=== PATIENT | female | born 1945 | race Hispanic/Latino ===

== ENCOUNTER 2020-08-01 19:09 | Inpatient (IN) | payer MEDICARE, BC ==
[2020-08-01] MEDS ORDERED: Pantoprazole 40 MG VIAL ONE (19:34)
[2020-08-01 19:35] LABS: #Eosinphils 0.2 10x3/uL (0.0-0.5); #Monocytes 0.9 10x3/uL (0.0-1.1); #Neutrophils 3.8 10x3/uL (1.5-8.4); %Basophils 0.5 % (0.0-2.0); %Eosinophils 3.6 % (0.0-6.0); %Lymphocytes 26.3 % (18.0-47.0); %Monocytes 13.1 % (0.0-10.0); %Neutrophils 56.2 % (40.0-75.0); Hemoglobin 9.3 g/dL (12.0-15.5); Mean Corpuscular HGB CONC 30.9 g/dL (32.0-36.0); Mean Corpuscular Hemoglobin 28.9 pg (27.0-33.0); Mean Corpuscular Volume 93.5 fl (81.6-98.3); Mean Platelet Volume 11.9 fl (7.4-10.4); Platelet Count 172 10x3/uL (150-450); RBC Distribution Width 14.9 % (11.5-14.5); Red Blood Cell (RBC) Count 3.22 10x6/uL (3.90-5.03); White Blood Cell (WBC) Count 6.7 10x3/uL (3.5-10.5)
[2020-08-01 19:48] LABS: ALT (SGPT) 14 U/L (8-55); AST (SGOT) 12 U/L (5-34); Albumin 3.1 g/dL (3.4-4.8); Alkaline Phosphatase 82 U/L (40-110); Anion Gap 14 mmol/L (10-20); BUN (Urea Nitrogen) 48 mg/dL (9.8-20.1); Bilirubin, Total 0.2 mg/dL (0.2-1.2); Calc. Creatinine Clearance 0 mL/min (70-130); Calcium 8.6 mg/dL (7.8-10.44); Carbon Dioxide 20 mmol/L (23-31); Chloride 116 mmol/L (98-107); Globulin 2.7 g/dL (2.4-3.5); Glucose 91 mg/dL (83-110); Potassium 4.4 mmol/L (3.5-5.1); Protein, Total 5.8 g/dL (5.8-8.1); Sodium 146 mmol/L (136-145)
[2020-08-01] MEDS ORDERED: Ondansetron PF 4 MG/2 ML Vial IVP PRN (21:12)
[2020-08-01] MEDS ORDERED: Zolpidem Tartrate 5 MG TAB PO PRN (21:12)
[2020-08-01] MEDS ORDERED: Calcium Carbonate 500 MG ChewTAB PO PRN (21:12)
[2020-08-01] MEDS ORDERED: Guaifenesin DM 100-10/5 ML UDCUP PO PRN (21:12)
[2020-08-01] MEDS ORDERED: Lactated Ringer's 1,000 ML IV SCH (21:15)
[2020-08-01] MEDS ORDERED: hydrALAZINE 20 MG/ML VIAL SLOW IVP PRN (21:16)
[2020-08-01 23:16] VITALS: BMI 30.8
[2020-08-02 05:43] LABS: Anion Gap 14 mmol/L (10-20); BUN (Urea Nitrogen) 52 mg/dL (9.8-20.1); Calc. Creatinine Clearance 27 mL/min (70-130); Carbon Dioxide 17 mmol/L (23-31); Chloride 118 mmol/L (98-107); Glucose 138 mg/dL (83-110); Iron 68 ug/dL (50-170); Iron Binding Capacity, Total 219 mcg/dL (265-497); Potassium 5.3 mmol/L (3.5-5.1); Sodium 144 mmol/L (136-145)
[2020-08-02] MEDS: Levothyroxine Sodium 75 MCG TAB PO SCH (05:44)
[2020-08-02 05:50] LABS: #Eosinphils 0.2 10x3/uL (0.0-0.5); #Monocytes 0.9 10x3/uL (0.0-1.1); #Neutrophils 4.5 10x3/uL (1.5-8.4); %Basophils 0.4 % (0.0-2.0); %Eosinophils 2.8 % (0.0-6.0); %Lymphocytes 23.2 % (18.0-47.0); %Monocytes 11.9 % (0.0-10.0); %Neutrophils 61.2 % (40.0-75.0); Hemoglobin 8.2 g/dL (12.0-15.5); Mean Corpuscular Hemoglobin 28.6 pg (27.0-33.0); Mean Corpuscular Volume 95.1 fl (81.6-98.3); Mean Platelet Volume 12.3 fl (7.4-10.4); Platelet Count 147 10x3/uL (150-450); RBC Distribution Width 15.2 % (11.5-14.5); Red Blood Cell (RBC) Count 2.87 10x6/uL (3.90-5.03); White Blood Cell (WBC) Count 7.4 10x3/uL (3.5-10.5)
[2020-08-02 06:00] LABS: Ferritin 60.49 ng/mL (10-291)
[2020-08-02] MEDS ORDERED: Sodium Chloride 0.45% 500 ML IV SCH (06:30)
[2020-08-02] MEDS: busPIRone HCl 5 MG TAB PO SCH ×2 (08:54→21:10)
[2020-08-02] MEDS: Gabapentin 300 MG CAP PO SCH ×2 (08:54→21:09)
[2020-08-02] MEDS: Folic Acid 1 MG TAB PO SCH (08:55)
[2020-08-02] MEDS: NIFEdipine XL 30 MG TAB PO SCH (08:55)
[2020-08-02] MEDS: Escitalopram Oxalate 20 mg Tablet PO SCH (08:55)
[2020-08-02] MEDS: hydrALAZINE 25 MG TAB PO SCH ×2 (08:55→21:16)
[2020-08-02] MEDS: Carvedilol 12.5 MG TAB PO SCH ×2 (08:55→17:17)
[2020-08-02] MEDS: Cholecalciferol 1,000 UNITS (25 MCG) TAB PO SCH (08:55)
[2020-08-02] MEDS: Rosuvastatin 10 MG TAB PO SCH (08:55)
[2020-08-02] MEDS: Pantoprazole 40 MG VIAL IVP SCH ×2 (08:57→21:11)
[2020-08-02] MEDS: Acetaminophen 325 MG TAB PO PRN (10:00)
[2020-08-02 16:38] LABS: SARS-CoV-2 PCR by NAA Not Detected (NotDetected)
[2020-08-02] MEDS: Dextrose 5 % And 0.9 % NaCl 1,000 ML IV SCH (21:30)
[2020-08-03] MEDS: Acetaminophen 325 MG TAB PO PRN (01:00)
[2020-08-03] MEDS: Levothyroxine Sodium 75 MCG TAB PO SCH (05:49)
[2020-08-03 06:36] LABS: Anion Gap 13 mmol/L (10-20); BUN (Urea Nitrogen) 41 mg/dL (9.8-20.1); Calc. Creatinine Clearance 30 mL/min (70-130); Calcium 8.5 mg/dL (7.8-10.44); Carbon Dioxide 18 mmol/L (23-31); Chloride 118 mmol/L (98-107); Glucose 111 mg/dL (83-110); Sodium 144 mmol/L (136-145)
[2020-08-03 06:39] LABS: #Eosinphils 0.3 10x3/uL (0.0-0.5); #Monocytes 0.5 10x3/uL (0.0-1.1); #Neutrophils 3.6 10x3/uL (1.5-8.4); %Basophils 0.7 % (0.0-2.0); %Eosinophils 5.3 % (0.0-6.0); %Lymphocytes 23.4 % (18.0-47.0); %Monocytes 8.8 % (0.0-10.0); %Neutrophils 61.3 % (40.0-75.0); Hemoglobin 8.6 g/dL (12.0-15.5); Mean Corpuscular HGB CONC 30.9 g/dL (32.0-36.0); Mean Corpuscular Hemoglobin 29.5 pg (27.0-33.0); Mean Corpuscular Volume 95.2 fl (81.6-98.3); Mean Platelet Volume 11.7 fl (7.4-10.4); Platelet Count 133 10x3/uL (150-450); Red Blood Cell (RBC) Count 2.92 10x6/uL (3.90-5.03); White Blood Cell (WBC) Count 5.8 10x3/uL (3.5-10.5)
[2020-08-03] MEDS: busPIRone HCl 5 MG TAB PO SCH ×2 (08:25→21:54)
[2020-08-03] MEDS: Pantoprazole 40 MG VIAL IVP SCH ×2 (08:25→21:54)
[2020-08-03] MEDS: Gabapentin 300 MG CAP PO SCH ×2 (08:26→21:54)
[2020-08-03] MEDS: Cholecalciferol 1,000 UNITS (25 MCG) TAB PO SCH (08:26)
[2020-08-03] MEDS: hydrALAZINE 25 MG TAB PO SCH ×2 (08:26→21:54)
[2020-08-03] MEDS: Escitalopram Oxalate 20 mg Tablet PO SCH (08:26)
[2020-08-03] MEDS: Rosuvastatin 10 MG TAB PO SCH (08:26)
[2020-08-03] MEDS: NIFEdipine XL 30 MG TAB PO SCH (08:27)
[2020-08-03] MEDS: Folic Acid 1 MG TAB PO SCH (08:27)
[2020-08-03] MEDS: Carvedilol 12.5 MG TAB PO SCH ×2 (08:27→18:58)
[2020-08-03] MEDS: Dextrose 5 % And 0.9 % NaCl 1,000 ML IV SCH (13:39)
[2020-08-03 15:02] LABS: Hemoglobin 7.9 g/dL (12.0-15.5)
[2020-08-03] MEDS ORDERED: GoLYTELY 4,000 ml Bottle PO SCH (18:00)
[2020-08-03 22:54] LABS: Hemoglobin 6.9 g/dL (12.0-15.5)
[2020-08-04] MEDS: Levothyroxine Sodium 75 MCG TAB PO SCH (06:13)
[2020-08-04 06:56] LABS: #Eosinphils 0.2 10x3/uL (0.0-0.5); #Monocytes 0.7 10x3/uL (0.0-1.1); #Neutrophils 4.6 10x3/uL (1.5-8.4); %Basophils 0.4 % (0.0-2.0); %Eosinophils 2.3 % (0.0-6.0); %Lymphocytes 19.4 % (18.0-47.0); %Monocytes 10.6 % (0.0-10.0); %Neutrophils 66.7 % (40.0-75.0); Hemoglobin 8.1 g/dL (12.0-15.5); Mean Corpuscular HGB CONC 32.1 g/dL (32.0-36.0); Mean Corpuscular Hemoglobin 30.2 pg (27.0-33.0); Mean Platelet Volume 12.2 fl (7.4-10.4); Platelet Count 102 10x3/uL (150-450); RBC Distribution Width 15.2 % (11.5-14.5); Red Blood Cell (RBC) Count 2.68 10x6/uL (3.90-5.03)
[2020-08-04 07:12] LABS: Anion Gap 10 mmol/L (10-20); BUN (Urea Nitrogen) 29 mg/dL (9.8-20.1); Calc. Creatinine Clearance 31 mL/min (70-130); Calcium 7.9 mg/dL (7.8-10.44); Carbon Dioxide 18 mmol/L (23-31); Chloride 121 mmol/L (98-107); Glucose 114 mg/dL (83-110); Potassium 5.2 mmol/L (3.5-5.1); Sodium 144 mmol/L (136-145)
[2020-08-04] MEDS ORDERED: PROPOFOL 20 ML ONE ×2 (09:27→10:09)
[2020-08-04] MEDS: hydrALAZINE 25 MG TAB PO SCH (12:16)
[2020-08-04] MEDS: Rosuvastatin 10 MG TAB PO SCH (12:17)
[2020-08-04] MEDS: Gabapentin 300 MG CAP PO SCH ×2 (12:17→22:23)
[2020-08-04] MEDS: Escitalopram Oxalate 20 mg Tablet PO SCH (12:17)
[2020-08-04] MEDS: busPIRone HCl 5 MG TAB PO SCH ×2 (12:17→22:24)
[2020-08-04] MEDS: Carvedilol 12.5 MG TAB PO SCH ×2 (12:17→22:23)
[2020-08-04] MEDS: Folic Acid 1 MG TAB PO SCH (12:18)
[2020-08-04] MEDS: Cholecalciferol 1,000 UNITS (25 MCG) TAB PO SCH (12:18)
[2020-08-04] MEDS: NIFEdipine XL 30 MG TAB PO SCH (12:18)
[2020-08-04] MEDS: Pantoprazole 40 MG VIAL IVP SCH (15:30)
[2020-08-04] MEDS: Dextrose 5 % And 0.9 % NaCl 1,000 ML IV SCH (15:31)
[2020-08-05] MEDS ORDERED: Dextrose 50% Abboject 50 ML SYRINGE IVP PRN (00:15)
[2020-08-05] MEDS ORDERED: Dextrose 5% in Water 1,000 ML IV PRN (00:15)
[2020-08-05] MEDS ORDERED: HumaLOG 300 UNITS/3 ML VIAL SC PRN (00:15)
[2020-08-05] MEDS: hydrALAZINE 25 MG TAB PO SCH ×2 (02:52→08:58)
[2020-08-05 05:40] LABS: #Eosinphils 0.2 10x3/uL (0.0-0.5); #Monocytes 0.6 10x3/uL (0.0-1.1); #Neutrophils 2.8 10x3/uL (1.5-8.4); %Basophils 0.2 % (0.0-2.0); %Eosinophils 4.1 % (0.0-6.0); %Lymphocytes 28.6 % (18.0-47.0); %Monocytes 11.8 % (0.0-10.0); %Neutrophils 54.9 % (40.0-75.0); Hemoglobin 7.3 g/dL (12.0-15.5); Mean Corpuscular HGB CONC 31.1 g/dL (32.0-36.0); Mean Corpuscular Hemoglobin 29.6 pg (27.0-33.0); Mean Corpuscular Volume 95.1 fl (81.6-98.3); Mean Platelet Volume 12.2 fl (7.4-10.4); Platelet Count 127 10x3/uL (150-450); RBC Distribution Width 14.6 % (11.5-14.5); Red Blood Cell (RBC) Count 2.47 10x6/uL (3.90-5.03); White Blood Cell (WBC) Count 5.2 10x3/uL (3.5-10.5)
[2020-08-05] MEDS: Levothyroxine Sodium 75 MCG TAB PO SCH (05:57)
[2020-08-05] MEDS: Rosuvastatin 10 MG TAB PO SCH (08:56)
[2020-08-05] MEDS: Folic Acid 1 MG TAB PO SCH (08:56)
[2020-08-05] MEDS: Escitalopram Oxalate 20 mg Tablet PO SCH (08:56)
[2020-08-05] MEDS: Cholecalciferol 1,000 UNITS (25 MCG) TAB PO SCH (08:56)
[2020-08-05] MEDS: Carvedilol 12.5 MG TAB PO SCH ×2 (08:57→17:17)
[2020-08-05] MEDS: Gabapentin 300 MG CAP PO SCH ×2 (08:57→20:47)
[2020-08-05] MEDS: busPIRone HCl 5 MG TAB PO SCH ×2 (08:57→20:47)
[2020-08-05] MEDS: NIFEdipine XL 30 MG TAB PO SCH (08:58)
[2020-08-05] MEDS ORDERED: Loperamide HCl 2 MG CAP PO SCH (11:30)
[2020-08-06] MEDS: hydrALAZINE 25 MG TAB PO SCH ×2 (00:57→08:41)
[2020-08-06] MEDS: Levothyroxine Sodium 75 MCG TAB PO SCH (05:20)
[2020-08-06] MEDS: Cholecalciferol 1,000 UNITS (25 MCG) TAB PO SCH (08:40)
[2020-08-06] MEDS: Gabapentin 300 MG CAP PO SCH (08:40)
[2020-08-06] MEDS: Folic Acid 1 MG TAB PO SCH (08:40)
[2020-08-06] MEDS: Carvedilol 12.5 MG TAB PO SCH (08:41)
[2020-08-06] MEDS: Rosuvastatin 10 MG TAB PO SCH (08:41)
[2020-08-06] MEDS: NIFEdipine XL 30 MG TAB PO SCH (08:41)
[2020-08-06] MEDS: busPIRone HCl 5 MG TAB PO SCH (08:42)
[2020-08-06] MEDS: Escitalopram Oxalate 20 mg Tablet PO SCH (08:42)
[2020-08-06 11:38] VITALS: TEMP 98.7
[2020-08-06 16:30] VITALS: BP 147/57
== END 2020-08-06 14:00 | disposition home or self-care (01) | DRG 378 ==
LOC: CSHERS 19:09 → CSHTELE 21:12 → OBSVTOIN 08-04 14:37
PROVIDERS: ADMIT Student in an Organized Health Care Education/Training Program; ATTEND Internal Medicine
PROC: 0DJD8ZZ Inspection of Lower Intestinal Tract, Via Natural or Artificial Opening Endoscopic (ICD-10-PCS; principal; 2020-08-04)
DX: K57.33 Diverticulitis of large intestine without perforation or abscess with bleeding (principal); I13.0 Hypertensive heart and chronic kidney disease with heart failure and stage 1 through stage 4 chronic kidney disease, or unspecified chronic kidney disease; I50.32 Chronic diastolic (congestive) heart failure; E87.2 Acidosis; D62 Acute posthemorrhagic anemia; E78.5 Hyperlipidemia, unspecified; E03.9 Hypothyroidism, unspecified; N18.30 Chronic kidney disease, stage 3 unspecified; Z88.6 Allergy status to analgesic agent; Z88.0 Allergy status to penicillin; Z88.2 Allergy status to sulfonamides; Z88.8 Allergy status to other drugs, medicaments and biological substances; Z95.0 Presence of cardiac pacemaker; D63.1 Anemia in chronic kidney disease; F41.9 Anxiety disorder, unspecified; F32.9 Major depressive disorder, single episode, unspecified; E66.9 Obesity, unspecified; Z68.30 Body mass index [BMI] 30.0-30.9, adult; Z66 Do not resuscitate
CPT/HCPCS: 36415; 36416; 36430; 74176; 78278; 80048; 82607; 82728; 82746; 83540; 83550; 85025; 86850; 86900; 86901; 87635; 96365; 96366; A9604; C9113; J1815; J2704; J7042; P9016; U0003; U0005

== ENCOUNTER 2021-02-02 12:47 | Inpatient (IN) | payer OTHER, MEDICARE, BC ==
[2021-02-02 13:29] LABS: #Eosinphils 0.2 10x3/uL (0.0-0.5); #Monocytes 0.7 10x3/uL (0.0-1.1); #Neutrophils 5.3 10x3/uL (1.5-8.4); %Basophils 0.5 % (0.0-2.0); %Eosinophils 2.5 % (0.0-6.0); %Lymphocytes 20.6 % (18.0-47.0); %Monocytes 8.6 % (0.0-10.0); %Neutrophils 67.5 % (40.0-75.0); Mean Corpuscular HGB CONC 30.7 g/dL (32.0-36.0); Mean Corpuscular Hemoglobin 27.9 pg (27.0-33.0); Mean Corpuscular Volume 90.9 fl (81.6-98.3); Mean Platelet Volume 12.1 fl (7.4-10.4); Platelet Count 148 10x3/uL (150-450); RBC Distribution Width 16.1 % (11.5-14.5); Red Blood Cell (RBC) Count 3.94 10x6/uL (3.90-5.03); White Blood Cell (WBC) Count 7.9 10x3/uL (3.5-10.5)
[2021-02-02 13:39] LABS: ALT (SGPT) 13 U/L (8-55); AST (SGOT) 20 U/L (5-34); Albumin 3.6 g/dL (3.4-4.8); Alkaline Phosphatase 89 U/L (40-110); Anion Gap 14 mmol/L (10-20); BUN (Urea Nitrogen) 42 mg/dL (9.8-20.1); Bilirubin, Total 0.9 mg/dL (0.2-1.2); Calc. Creatinine Clearance 0 mL/min (70-130); Calcium 9.2 mg/dL (7.8-10.44); Carbon Dioxide 18 mmol/L (23-31); Chloride 116 mmol/L (98-107); Globulin 3.1 g/dL (2.4-3.5); Glucose 106 mg/dL (83-110); Potassium 4.8 mmol/L (3.5-5.1); Protein, Total 6.7 g/dL (5.8-8.1); Sodium 143 mmol/L (136-145)
[2021-02-02 15:00] LABS: CKMB 3.7 ng/mL (0-6.6)
[2021-02-02] MEDS ORDERED: Furosemide 40 MG/4 ML VIAL ONE (15:46)
[2021-02-02] MEDS ORDERED: Nitroglycerin 2% Ointment 1 INCH/1 GM Packet ONE (15:46)
[2021-02-02] MEDS ORDERED: Carvedilol 12.5 MG TAB PO SCH (16:00)
[2021-02-02] MEDS ORDERED: Losartan 25 MG TAB PO SCH (17:15)
[2021-02-02] MEDS ORDERED: NIFEdipine 10 MG CAP PO SCH (17:15)
[2021-02-02] MEDS ORDERED: niCARdipine 20MG In NaCl 0 MG/0 ML BAG ONE (17:17)
[2021-02-02] MEDS ORDERED: niCARdipine 20MG In NaCl 20 MG/200 ML BAG ONE (17:17)
[2021-02-02 18:06] LABS: Bilirubin Neg (Negative); Blood, Urine 50 (Negative); Clarity Slightly Cloudy (Clear); Glucose, Urine (Dipstick) Normal (Negative); Ketone, Urine Negative (Negative); Leukocyte 500 (Negative); Nitrite Negative (Negative); Protein, Urine (Dipstick) 30 mg/dl (Neg-Trace); Urobilinogen Normal mg/dL (Less than 2)
[2021-02-02 18:22] LABS: RBC/HPF 0-3 HPF (0-3); WBC/HPF 21-50 HPF (0-3)
[2021-02-02 18:23] LABS: Bacteria/HPF 4+ HPF (None Seen); Mucous/LPF 1+ LPF (<2+)
[2021-02-02 18:25] LABS: Troponin I 0.062 ng/mL (< 0.028)
[2021-02-02] MEDS ORDERED: Calcium Carbonate 500 MG ChewTAB PO PRN (19:21)
[2021-02-02] MEDS ORDERED: Dextrose 50% Abboject 50 ML SYRINGE SLOW IVP PRN (19:21)
[2021-02-02] MEDS ORDERED: Guaifenesin DM 100-10/5 ML UDCUP PO PRN (19:21)
[2021-02-02] MEDS ORDERED: HumaLOG 300 UNITS/3 ML VIAL SC PRN (19:21)
[2021-02-02] MEDS ORDERED: Ondansetron PF 4 MG/2 ML Vial IVP PRN (19:21)
[2021-02-02] MEDS ORDERED: Dextrose 5% in Water 1,000 ML IV PRN (19:21)
[2021-02-02] MEDS ORDERED: Acetaminophen 325 MG TAB PO PRN (19:21)
[2021-02-02] MEDS ORDERED: hydrALAZINE 20 MG/ML VIAL SLOW IVP PRN (19:24)
[2021-02-02 20:46] VITALS: BMI 32.1
[2021-02-02] MEDS ORDERED: Lactated Ringer's 1,000 ML IV SCH (21:00)
[2021-02-02 21:20] LABS: Troponin I 0.061 ng/mL (< 0.028)
[2021-02-02] MEDS ORDERED: cefTRIAXone\\ROCEPHIN 1 GM VIAL ONE (22:08)
[2021-02-02] MEDS: cefTRIAXone\\ROCEPHIN 1 GM in Sodium Chloride 0.9% 100 ML IVPB SCH (22:10)
[2021-02-02] MEDS: Gabapentin 300 MG CAP PO SCH (22:10)
[2021-02-02] MEDS: hydrALAZINE 25 MG TAB PO SCH (22:11)
[2021-02-02] MEDS: Rosuvastatin 10 MG TAB PO SCH (22:12)
[2021-02-02] MEDS ORDERED: NIFEdipine XL 30 MG TAB PO SCH (22:15)
[2021-02-02 23:08] LABS: CKMB 3.8 ng/mL (0-6.6)
[2021-02-03 04:30] LABS: #Eosinphils 0.2 10x3/uL (0.0-0.5); #Monocytes 0.8 10x3/uL (0.0-1.1); %Basophils 0.4 % (0.0-2.0); %Eosinophils 2.8 % (0.0-6.0); %Lymphocytes 22.1 % (18.0-47.0); %Monocytes 10.2 % (0.0-10.0); %Neutrophils 64.1 % (40.0-75.0); Hemoglobin 9.2 g/dL (12.0-15.5); Mean Corpuscular HGB CONC 31.4 g/dL (32.0-36.0); Mean Corpuscular Hemoglobin 28.6 pg (27.0-33.0); Mean Platelet Volume 12.5 fl (7.4-10.4); Platelet Count 129 10x3/uL (150-450); RBC Distribution Width 16.2 % (11.5-14.5); Red Blood Cell (RBC) Count 3.22 10x6/uL (3.90-5.03); White Blood Cell (WBC) Count 7.8 10x3/uL (3.5-10.5)
[2021-02-03 04:43] LABS: ALT (SGPT) 11 U/L (8-55); AST (SGOT) 16 U/L (5-34); Alkaline Phosphatase 84 U/L (40-110); Anion Gap 13 mmol/L (10-20); BUN (Urea Nitrogen) 48 mg/dL (9.8-20.1); Bilirubin, Total 0.6 mg/dL (0.2-1.2); CK (CPK) 155 U/L (29-168); Calc. Creatinine Clearance 27 mL/min (70-130); Calcium 8.3 mg/dL (7.8-10.44); Carbon Dioxide 19 mmol/L (23-31); Chloride 118 mmol/L (98-107); Globulin 2.1 g/dL (2.4-3.5); Glucose 163 mg/dL (83-110); Magnesium 2.1 mg/dL (1.6-2.6); Potassium 4.7 mmol/L (3.5-5.1); Protein, Total 5.1 g/dL (5.8-8.1); Sodium 145 mmol/L (136-145)
[2021-02-03 05:05] LABS: CKMB 2.7 ng/mL (0-6.6)
[2021-02-03] MEDS: Levothyroxine Sodium 75 MCG TAB PO SCH (05:52)
[2021-02-03] MEDS: Folic Acid 1 MG TAB PO SCH (09:02)
[2021-02-03] MEDS: Carvedilol 12.5 MG TAB PO SCH ×2 (09:02→17:31)
[2021-02-03] MEDS: Calcitriol 0.25 MCG CAP PO SCH (09:02)
[2021-02-03] MEDS: NIFEdipine XL 30 MG TAB PO SCH (09:02)
[2021-02-03] MEDS: Gabapentin 300 MG CAP PO SCH ×2 (09:02→20:54)
[2021-02-03] MEDS: busPIRone HCl 5 MG TAB PO SCH (09:02)
[2021-02-03] MEDS: Escitalopram Oxalate 20 mg Tablet PO SCH (09:03)
[2021-02-03] MEDS: hydrALAZINE 25 MG TAB PO SCH ×3 (09:03→20:53)
[2021-02-03] MEDS: Lantus 1000 UNITS/10 ML VIAL SC SCH (09:04)
[2021-02-03] MEDS: HYDROcodone/Acetaminophen 5/325 mg Tablet PO PRN (11:55)
[2021-02-03] MEDS ORDERED: Lactated Ringer's 1,000 ML IV SCH (14:45)
[2021-02-03] MEDS: cefTRIAXone\\ROCEPHIN 1 GM in Sodium Chloride 0.9% 100 ML IVPB SCH (20:53)
[2021-02-03] MEDS: Rosuvastatin 10 MG TAB PO SCH (20:54)
[2021-02-04] MEDS: Levothyroxine Sodium 75 MCG TAB PO SCH (06:17)
[2021-02-04] MEDS ORDERED: Cholecalciferol 1,000 UNITS (25 MCG) TAB PO SCH (09:00)
[2021-02-04] MEDS: HYDROcodone/Acetaminophen 5/325 mg Tablet PO PRN (09:29)
[2021-02-04] MEDS: Gabapentin 300 MG CAP PO SCH ×2 (10:43→20:41)
[2021-02-04] MEDS: Escitalopram Oxalate 20 mg Tablet PO SCH (10:44)
[2021-02-04] MEDS: Calcitriol 0.25 MCG CAP PO SCH (10:44)
[2021-02-04] MEDS: busPIRone HCl 5 MG TAB PO SCH (10:44)
[2021-02-04] MEDS: NIFEdipine XL 30 MG TAB PO SCH (10:44)
[2021-02-04] MEDS: hydrALAZINE 25 MG TAB PO SCH ×3 (10:45→20:40)
[2021-02-04] MEDS: Carvedilol 12.5 MG TAB PO SCH ×2 (10:45→18:44)
[2021-02-04] MEDS: Folic Acid 1 MG TAB PO SCH (10:45)
[2021-02-04] MEDS: Furosemide 40 MG TAB PO SCH (10:46)
[2021-02-04] MEDS: Lantus 1000 UNITS/10 ML VIAL SC SCH (10:52)
[2021-02-04] MEDS: Rosuvastatin 10 MG TAB PO SCH (20:40)
[2021-02-04] MEDS: cefTRIAXone\\ROCEPHIN 1 GM in Sodium Chloride 0.9% 100 ML IVPB SCH (20:40)
[2021-02-05] MEDS: Levothyroxine Sodium 75 MCG TAB PO SCH (05:40)
[2021-02-05] MEDS: Calcitriol 0.25 MCG CAP PO SCH (09:35)
[2021-02-05] MEDS: Furosemide 40 MG TAB PO SCH (09:35)
[2021-02-05] MEDS: Gabapentin 300 MG CAP PO SCH (09:35)
[2021-02-05] MEDS: Carvedilol 12.5 MG TAB PO SCH (09:35)
[2021-02-05] MEDS: busPIRone HCl 5 MG TAB PO SCH (09:36)
[2021-02-05] MEDS: NIFEdipine XL 30 MG TAB PO SCH (09:36)
[2021-02-05] MEDS: Folic Acid 1 MG TAB PO SCH (09:36)
[2021-02-05] MEDS: hydrALAZINE 25 MG TAB PO SCH (09:41)
[2021-02-05] MEDS: Lantus 1000 UNITS/10 ML VIAL SC SCH (09:41)
[2021-02-05] MEDS: Escitalopram Oxalate 20 mg Tablet PO SCH (09:41)
[2021-02-05 11:39] VITALS: TEMP 97.7
[2021-02-05 12:25] VITALS: BP 152/65
== END 2021-02-05 13:19 | DRG 605 ==
LOC: CSHERS 12:47 → CSHTELE 12:48
PROVIDERS: ADMIT Student in an Organized Health Care Education/Training Program; ATTEND Internal Medicine
DX: S70.11XA Contusion of right thigh, initial encounter (principal); N39.0 Urinary tract infection, site not specified; E87.2 Acidosis; I50.32 Chronic diastolic (congestive) heart failure; I13.0 Hypertensive heart and chronic kidney disease with heart failure and stage 1 through stage 4 chronic kidney disease, or unspecified chronic kidney disease; K55.1 Chronic vascular disorders of intestine; R79.89 Other specified abnormal findings of blood chemistry; I16.0 Hypertensive urgency; F41.9 Anxiety disorder, unspecified; F32.A Depression, unspecified; E03.9 Hypothyroidism, unspecified; E78.5 Hyperlipidemia, unspecified; K59.00 Constipation, unspecified; W01.0XXA Fall on same level from slipping, tripping and stumbling without subsequent striking against object, initial encounter; E86.0 Dehydration; E11.22 Type 2 diabetes mellitus with diabetic chronic kidney disease; D63.1 Anemia in chronic kidney disease; I70.1 Atherosclerosis of renal artery; Z60.2 Problems related to living alone; N18.30 Chronic kidney disease, stage 3 unspecified; Z90.710 Acquired absence of both cervix and uterus; Z96.659 Presence of unspecified artificial knee joint; D69.6 Thrombocytopenia, unspecified; I08.1 Rheumatic disorders of both mitral and tricuspid valves; E78.00 Pure hypercholesterolemia, unspecified; Y92.008 Other place in unspecified non-institutional (private) residence as the place of occurrence of the external cause; Z91.041 Radiographic dye allergy status; Z88.6 Allergy status to analgesic agent; Z88.2 Allergy status to sulfonamides; Z88.0 Allergy status to penicillin; Z95.0 Presence of cardiac pacemaker
CPT/HCPCS: 36416; 70450; 71045; 72125; 80053; 81003; 81015; 82550; 82553; 83735; 83880; 84443; 84484; 85025; 87077; 87086; 87186; 93005; 93970; J0696; J1815; J1940; J3490; J7120

== ENCOUNTER 2021-09-26 19:21 | Emergency (ER) | payer MEDICARE, BC ==
[2021-09-26 20:21] LABS: #Eosinphils 0.2 10x3/uL (0.0-0.5); #Monocytes 0.6 10x3/uL (0.0-1.1); #Neutrophils 4.3 10x3/uL (1.5-8.4); %Basophils 0.6 % (0.0-2.0); %Eosinophils 3.1 % (0.0-6.0); %Lymphocytes 20.9 % (18.0-47.0); %Monocytes 8.6 % (0.0-10.0); %Neutrophils 66.5 % (40.0-75.0); Hemoglobin 10.8 g/dL (12.0-15.5); Mean Corpuscular HGB CONC 31.1 g/dL (32.0-36.0); Mean Corpuscular Hemoglobin 29.5 pg (27.0-33.0); Mean Corpuscular Volume 94.8 fl (81.6-98.3); Mean Platelet Volume 12.2 fl (7.4-10.4); Platelet Count 129 10x3/uL (150-450); RBC Distribution Width 15.9 % (11.5-14.5); Red Blood Cell (RBC) Count 3.66 10x6/uL (3.90-5.03); White Blood Cell (WBC) Count 6.4 10x3/uL (3.5-10.5)
[2021-09-26 20:35] LABS: ALT (SGPT) 22 U/L (8-55); AST (SGOT) 23 U/L (5-34); Albumin 3.5 g/dL (3.4-4.8); Alkaline Phosphatase 150 U/L (40-110); Anion Gap 15 mmol/L (10-20); BUN (Urea Nitrogen) 56 mg/dL (9.8-20.1); Bilirubin, Total 0.2 mg/dL (0.2-1.2); Calc. Creatinine Clearance 0 mL/min (70-130); Calcium 9.1 mg/dL (7.8-10.44); Carbon Dioxide 17 mmol/L (23-31); Chloride 113 mmol/L (98-107); Estimated GFR 17; Glucose 267 mg/dL (83-110); Potassium 5.2 mmol/L (3.5-5.1); Protein, Total 6.5 g/dL (5.8-8.1); Sodium 140 mmol/L (136-145)
[2021-09-26] MEDS ORDERED: cloNIDine 0.1 MG TAB ONE (21:25)
== END 2021-09-26 22:10 | disposition home or self-care (01) ==
LOC: CSHERS 19:21
DX: S01.01XA Laceration without foreign body of scalp, initial encounter (principal); E11.65 Type 2 diabetes mellitus with hyperglycemia; E11.22 Type 2 diabetes mellitus with diabetic chronic kidney disease; I13.0 Hypertensive heart and chronic kidney disease with heart failure and stage 1 through stage 4 chronic kidney disease, or unspecified chronic kidney disease; N18.9 Chronic kidney disease, unspecified; I50.9 Heart failure, unspecified; Z91.14 Patient's other noncompliance with medication regimen; W01.0XXA Fall on same level from slipping, tripping and stumbling without subsequent striking against object, initial encounter
CPT/HCPCS: 12001; 36415; 70450; 72125; 80053; 85025; 93005; 96374; 96375

== ENCOUNTER 2021-10-22 15:55 | Emergency (ER) | payer MEDICARE, BC ==
[2021-10-22] MEDS ORDERED: Lidocaine 1% (PF) 30 ML VIAL ONE (16:16)
== END 2021-10-22 16:50 | disposition home or self-care (01) ==
LOC: CSHERS 15:55
DX: S01.01XD Laceration without foreign body of scalp, subsequent encounter (principal); E78.5 Hyperlipidemia, unspecified; I11.0 Hypertensive heart disease with heart failure; I50.9 Heart failure, unspecified; E11.9 Type 2 diabetes mellitus without complications
CPT/HCPCS: J2001

== ENCOUNTER 2021-12-11 18:44 | Inpatient (IN) | payer MEDICARE, BC ==
[2021-12-11] MEDS ORDERED: Labetalol HCl 100 MG/20 ML VIAL ONE (19:56)
[2021-12-11 20:00] LABS: #Eosinphils 0.2 10x3/uL (0.0-0.5); #Monocytes 0.6 10x3/uL (0.0-1.1); #Neutrophils 4.7 10x3/uL (1.5-8.4); %Basophils 0.6 % (0.0-2.0); %Eosinophils 2.3 % (0.0-6.0); %Lymphocytes 21.2 % (18.0-47.0); %Monocytes 8.4 % (0.0-10.0); %Neutrophils 67.4 % (40.0-75.0); Mean Corpuscular HGB CONC 32.2 g/dL (32.0-36.0); Mean Corpuscular Hemoglobin 29.6 pg (27.0-33.0); Mean Corpuscular Volume 91.9 fl (81.6-98.3); Mean Platelet Volume 12.1 fl (7.4-10.4); Platelet Count 136 10x3/uL (150-450); RBC Distribution Width 13.8 % (11.5-14.5); Red Blood Cell (RBC) Count 3.72 10x6/uL (3.90-5.03)
[2021-12-11 20:16] LABS: ALT (SGPT) 17 U/L (8-55); AST (SGOT) 20 U/L (5-34); Albumin 3.7 g/dL (3.4-4.8); Alkaline Phosphatase 115 U/L (40-110); Anion Gap 13 mmol/L (10-20); BUN (Urea Nitrogen) 47 mg/dL (9.8-20.1); Bilirubin, Total 0.6 mg/dL (0.2-1.2); Calc. Creatinine Clearance 0 mL/min (70-130); Calcium 8.9 mg/dL (7.8-10.44); Carbon Dioxide 18 mmol/L (23-31); Chloride 116 mmol/L (98-107); Estimated GFR 30; Globulin 2.8 g/dL (2.4-3.5); Glucose 184 mg/dL (83-110); Lipase 21 U/L (8-78); Potassium 5.1 mmol/L (3.5-5.1); Protein, Total 6.5 g/dL (5.8-8.1); Sodium 142 mmol/L (136-145)
[2021-12-11] MEDS ORDERED: Aspirin Chewable 81 MG TAB ONE (20:50)
[2021-12-11] MEDS ORDERED: Nitroglycerin 0.4 MG TAB 1 EACH ONE (20:51)
[2021-12-11] MEDS ORDERED: Furosemide 40 MG/4 ML VIAL ONE (21:22)
[2021-12-11] MEDS ORDERED: hydrALAZINE 20 MG/ML VIAL SLOW IVP PRN (22:48)
[2021-12-11] MEDS ORDERED: HYDROcodone/Acetaminophen 5/325 mg Tablet PO PRN (22:50)
[2021-12-11] MEDS ORDERED: Dextrose 5% in Water 1,000 ML IV PRN (22:50)
[2021-12-11] MEDS ORDERED: HumaLOG 300 UNITS/3 ML VIAL SC PRN (22:50)
[2021-12-11] MEDS ORDERED: Nitroglycerin 0.4 MG TAB (25 Tab Bottle) SL PRN (22:50)
[2021-12-11] MEDS ORDERED: Zolpidem Tartrate 5 MG TAB PO PRN (22:50)
[2021-12-11] MEDS ORDERED: Dextrose 50% Abboject 50 ML SYRINGE SLOW IVP PRN (22:50)
[2021-12-11] MEDS ORDERED: Ondansetron PF 4 MG/2 ML Vial IVP PRN (22:50)
[2021-12-11] MEDS ORDERED: Furosemide 40 MG/4 ML VIAL SLOW IVP SCH (23:00)
[2021-12-11] MEDS ORDERED: hydrALAZINE 20 MG/ML VIAL SLOW IVP SCH (23:00)
[2021-12-11] MEDS ORDERED: hydrALAZINE 25 MG TAB PO SCH (23:00)
[2021-12-11] MEDS ORDERED: Morphine 2 MG/ML VIAL SLOW IVP SCH (23:00)
[2021-12-11] MEDS ORDERED: Losartan Potassium 50 MG TAB PO SCH (23:00)
[2021-12-11] MEDS ORDERED: Carvedilol 25 MG TAB PO SCH (23:00)
[2021-12-11] MEDS ORDERED: Morphine 4 MG/ML VIAL SLOW IVP SCH (23:15)
[2021-12-11 23:58] LABS: CKMB 2.2 ng/mL (0-6.6)
[2021-12-12 01:22] VITALS: BMI 32.5
[2021-12-12 02:41] LABS: #Eosinphils 0.1 10x3/uL (0.0-0.5); #Monocytes 0.6 10x3/uL (0.0-1.1); #Neutrophils 5.8 10x3/uL (1.5-8.4); %Basophils 0.5 % (0.0-2.0); %Eosinophils 1.7 % (0.0-6.0); %Monocytes 8.2 % (0.0-10.0); %Neutrophils 74.3 % (40.0-75.0); Hemoglobin 9.7 g/dL (12.0-15.5); Mean Corpuscular HGB CONC 32.3 g/dL (32.0-36.0); Mean Corpuscular Hemoglobin 29.9 pg (27.0-33.0); Mean Corpuscular Volume 92.6 fl (81.6-98.3); Mean Platelet Volume 11.9 fl (7.4-10.4); Platelet Count 130 10x3/uL (150-450); RBC Distribution Width 13.9 % (11.5-14.5); Red Blood Cell (RBC) Count 3.24 10x6/uL (3.90-5.03); White Blood Cell (WBC) Count 7.7 10x3/uL (3.5-10.5)
[2021-12-12 02:57] LABS: ALT (SGPT) 12 U/L (8-55); AST (SGOT) 17 U/L (5-34); Albumin 3.1 g/dL (3.4-4.8); Alkaline Phosphatase 98 U/L (40-110); Anion Gap 13 mmol/L (10-20); BUN (Urea Nitrogen) 46 mg/dL (9.8-20.1); Bilirubin, Total 0.4 mg/dL (0.2-1.2); Calc. Creatinine Clearance 37 mL/min (70-130); Calcium 8.7 mg/dL (7.8-10.44); Carbon Dioxide 20 mmol/L (23-31); Cardiac Risk 3.7 (Less than 4.5); Chloride 114 mmol/L (98-107); Cholesterol 140 mg/dl (< 200 Desired); Estimated GFR 31; Globulin 2.6 g/dL (2.4-3.5); Glucose 212 mg/dL (83-110); HDL Cholesterol 38 mg/dL (>60 Neg Risk); LDL Cholesterol, Calculated 77 mg/dL; Potassium 4.9 mmol/L (3.5-5.1); Protein, Total 5.7 g/dL (5.8-8.1); Sodium 142 mmol/L (136-145); Triglycerides 124 mg/dL (Less than 150)
[2021-12-12 03:02] LABS: Bilirubin Neg (Negative); Blood, Urine 150 (Negative); Glucose, Urine (Dipstick) Normal (Negative); Ketone, Urine Negative (Negative); Leukocyte 100 (Negative); Nitrite Negative (Negative); Protein, Urine (Dipstick) 30 mg/dl (Neg-Trace); Specific Gravity, Urine 1.005 (1.002-1.036); Urobilinogen Normal mg/dL (Less than 2)
[2021-12-12 03:11] LABS: Bacteria/HPF 4+ HPF (None Seen); RBC/HPF 21-50 HPF (0-3); Squamous Epithelial 0-3 HPF (0-3)
[2021-12-12 03:13] LABS: CKMB 1.8 ng/mL (0-6.6)
[2021-12-12] MEDS: Furosemide 40 MG/4 ML VIAL SLOW IVP SCH ×2 (06:12→13:14)
[2021-12-12] MEDS ORDERED: hydrALAZINE 25 MG TAB PO SCH (09:00)
[2021-12-12] MEDS ORDERED: Enoxaparin Sodium 40 MG/0.4 ML SYRINGE SC SCH (09:00)
[2021-12-12] MEDS ORDERED: Clopidogrel Bisulfate 75 MG TAB PO SCH (09:00)
[2021-12-12] MEDS ORDERED: Famotidine 20 MG TAB PO SCH (09:00)
[2021-12-12] MEDS ORDERED: Losartan Potassium 50 MG TAB PO SCH (09:00)
[2021-12-12] MEDS: Famotidine 20 MG TAB PO SCH (09:52)
[2021-12-12] MEDS: Carvedilol 25 MG TAB PO SCH ×2 (09:53→17:12)
[2021-12-12] MEDS: busPIRone HCl 5 MG TAB PO SCH (09:53)
[2021-12-12] MEDS: Gabapentin 300 MG CAP PO SCH ×2 (09:53→21:46)
[2021-12-12] MEDS: Lantus 1000 UNITS/10 ML VIAL SC SCH (10:01)
[2021-12-12] MEDS: Escitalopram Oxalate 20 mg Tablet PO SCH (10:05)
[2021-12-12] MEDS: HumaLOG 300 UNITS/3 ML VIAL SC PRN (17:13)
[2021-12-12] MEDS ORDERED: Melatonin 3 MG TAB PO PRN (18:29)
[2021-12-12] MEDS ORDERED: Ipratropium Bromide 2.5 ml Neb NEB PRN (19:02)
[2021-12-13 05:01] LABS: #Eosinphils 0.1 10x3/uL (0.0-0.5); #Monocytes 0.8 10x3/uL (0.0-1.1); #Neutrophils 4.3 10x3/uL (1.5-8.4); %Basophils 0.3 % (0.0-2.0); %Eosinophils 2.1 % (0.0-6.0); %Monocytes 11.7 % (0.0-10.0); %Neutrophils 63.6 % (40.0-75.0); Hemoglobin 9.2 g/dL (12.0-15.5); Mean Corpuscular HGB CONC 32.1 g/dL (32.0-36.0); Mean Corpuscular Hemoglobin 29.7 pg (27.0-33.0); Mean Corpuscular Volume 92.6 fl (81.6-98.3); Mean Platelet Volume 12.2 fl (7.4-10.4); Platelet Count 122 10x3/uL (150-450); RBC Distribution Width 14.2 % (11.5-14.5); White Blood Cell (WBC) Count 6.7 10x3/uL (3.5-10.5)
[2021-12-13 05:15] LABS: Anion Gap 15 mmol/L (10-20); BUN (Urea Nitrogen) 54 mg/dL (9.8-20.1); Calc. Creatinine Clearance 25 mL/min (70-130); Calcium 8.2 mg/dL (7.8-10.44); Carbon Dioxide 18 mmol/L (23-31); Chloride 112 mmol/L (98-107); Estimated GFR 19; Glucose 108 mg/dL (83-110); Magnesium 2.3 mg/dL (1.6-2.6); Potassium 4.7 mmol/L (3.5-5.1); Sodium 140 mmol/L (136-145)
[2021-12-13] MEDS ORDERED: Furosemide 40 MG/4 ML VIAL SLOW IVP SCH (09:00)
[2021-12-13] MEDS: Famotidine 20 MG TAB PO SCH (09:25)
[2021-12-13] MEDS: Gabapentin 300 MG CAP PO SCH ×2 (09:25→22:23)
[2021-12-13] MEDS: busPIRone HCl 5 MG TAB PO SCH (09:25)
[2021-12-13] MEDS: hydrALAZINE 25 MG TAB PO SCH ×2 (09:26→22:24)
[2021-12-13] MEDS: Carvedilol 12.5 MG TAB PO SCH ×2 (09:27→17:08)
[2021-12-13] MEDS: Escitalopram Oxalate 20 mg Tablet PO SCH (09:27)
[2021-12-13] MEDS: Saccharomyces boulardii 250 MG CAP PO SCH (09:28)
[2021-12-13] MEDS: Heparin 5,000 UNITS/ML VIAL SC SCH ×2 (09:30→22:24)
[2021-12-13] MEDS: Lantus 1000 UNITS/10 ML VIAL SC SCH (09:35)
[2021-12-13] MEDS: Acetaminophen 325 MG TAB PO PRN (09:48)
[2021-12-13] MEDS ORDERED: Levothyroxine Sodium 75 MCG TAB PO SCH (10:15)
[2021-12-13] MEDS: HumaLOG 300 UNITS/3 ML VIAL SC PRN (17:01)
[2021-12-14 05:12] LABS: #Eosinphils 0.2 10x3/uL (0.0-0.5); #Monocytes 0.7 10x3/uL (0.0-1.1); #Neutrophils 4.5 10x3/uL (1.5-8.4); %Basophils 0.4 % (0.0-2.0); %Eosinophils 2.8 % (0.0-6.0); %Lymphocytes 19.9 % (18.0-47.0); %Monocytes 9.7 % (0.0-10.0); %Neutrophils 67.1 % (40.0-75.0); Hemoglobin 9.6 g/dL (12.0-15.5); Mean Corpuscular Hemoglobin 29.7 pg (27.0-33.0); Mean Corpuscular Volume 92.9 fl (81.6-98.3); Mean Platelet Volume 12.3 fl (7.4-10.4); Platelet Count 129 10x3/uL (150-450); RBC Distribution Width 13.8 % (11.5-14.5); Red Blood Cell (RBC) Count 3.23 10x6/uL (3.90-5.03); White Blood Cell (WBC) Count 6.7 10x3/uL (3.5-10.5)
[2021-12-14 05:20] LABS: Anion Gap 13 mmol/L (10-20); BUN (Urea Nitrogen) 62 mg/dL (9.8-20.1); Calc. Creatinine Clearance 26 mL/min (70-130); Calcium 8.4 mg/dL (7.8-10.44); Carbon Dioxide 20 mmol/L (23-31); Chloride 114 mmol/L (98-107); Estimated GFR 20; Glucose 103 mg/dL (83-110); Magnesium 2.4 mg/dL (1.6-2.6); Sodium 142 mmol/L (136-145)
[2021-12-14] MEDS: Levothyroxine Sodium 75 MCG TAB PO SCH (05:37)
[2021-12-14] MEDS ORDERED: LEVOTHYROXINE SODIUM 75 MCG PO SCH (06:00)
[2021-12-14] MEDS: Escitalopram Oxalate 20 mg Tablet PO SCH (09:09)
[2021-12-14] MEDS: Lantus 1000 UNITS/10 ML VIAL SC SCH (09:10)
[2021-12-14] MEDS: Heparin 5,000 UNITS/ML VIAL SC SCH ×2 (09:11→21:57)
[2021-12-14] MEDS: Saccharomyces boulardii 250 MG CAP PO SCH (09:14)
[2021-12-14] MEDS: Gabapentin 300 MG CAP PO SCH ×2 (09:14→21:57)
[2021-12-14] MEDS: Carvedilol 12.5 MG TAB PO SCH ×2 (09:14→18:15)
[2021-12-14] MEDS: Famotidine 20 MG TAB PO SCH (09:15)
[2021-12-14] MEDS: hydrALAZINE 25 MG TAB PO SCH ×2 (09:15→21:56)
[2021-12-14] MEDS: busPIRone HCl 5 MG TAB PO SCH (09:15)
[2021-12-14] MEDS: Acetaminophen 325 MG TAB PO PRN ×2 (10:10→22:06)
[2021-12-14] MEDS: Furosemide 40 MG TAB PO SCH (12:31)
[2021-12-14] MEDS: Atorvastatin Calcium 10 MG TAB PO SCH (21:57)
[2021-12-15] MEDS: Levothyroxine Sodium 75 MCG TAB PO SCH (05:02)
[2021-12-15 05:26] LABS: #Eosinphils 0.2 10x3/uL (0.0-0.5); #Monocytes 0.7 10x3/uL (0.0-1.1); #Neutrophils 3.5 10x3/uL (1.5-8.4); %Basophils 0.3 % (0.0-2.0); %Eosinophils 3.9 % (0.0-6.0); %Lymphocytes 24.2 % (18.0-47.0); %Monocytes 11.6 % (0.0-10.0); %Neutrophils 59.7 % (40.0-75.0); Hemoglobin 9.4 g/dL (12.0-15.5); Mean Corpuscular HGB CONC 31.9 g/dL (32.0-36.0); Mean Corpuscular Hemoglobin 29.5 pg (27.0-33.0); Mean Corpuscular Volume 92.5 fl (81.6-98.3); Platelet Count 130 10x3/uL (150-450); RBC Distribution Width 13.9 % (11.5-14.5); Red Blood Cell (RBC) Count 3.19 10x6/uL (3.90-5.03); White Blood Cell (WBC) Count 5.9 10x3/uL (3.5-10.5)
[2021-12-15 05:32] LABS: Anion Gap 15 mmol/L (10-20); BUN (Urea Nitrogen) 63 mg/dL (9.8-20.1); Calc. Creatinine Clearance 23 mL/min (70-130); Calcium 8.4 mg/dL (7.8-10.44); Carbon Dioxide 20 mmol/L (23-31); Chloride 115 mmol/L (98-107); Estimated GFR 18; Glucose 122 mg/dL (83-110); Potassium 4.7 mmol/L (3.5-5.1); Sodium 145 mmol/L (136-145)
[2021-12-15] MEDS: hydrALAZINE 25 MG TAB PO SCH ×2 (09:44→21:12)
[2021-12-15] MEDS: Saccharomyces boulardii 250 MG CAP PO SCH (09:45)
[2021-12-15] MEDS: Lantus 1000 UNITS/10 ML VIAL SC SCH (09:45)
[2021-12-15] MEDS: Famotidine 20 MG TAB PO SCH (09:45)
[2021-12-15] MEDS: Escitalopram Oxalate 20 mg Tablet PO SCH (09:45)
[2021-12-15] MEDS: Gabapentin 300 MG CAP PO SCH ×2 (09:46→21:12)
[2021-12-15] MEDS: busPIRone HCl 5 MG TAB PO SCH (09:46)
[2021-12-15] MEDS: Heparin 5,000 UNITS/ML VIAL SC SCH ×2 (09:47→21:13)
[2021-12-15] MEDS: Carvedilol 12.5 MG TAB PO SCH ×2 (09:47→17:39)
[2021-12-15] MEDS: Furosemide 40 MG TAB PO SCH (12:39)
[2021-12-15] MEDS ORDERED: Amlodipine 10 MG TAB PO SCH (18:00)
[2021-12-15] MEDS: Ciprofloxacin 500 MG TAB PO SCH (18:29)
[2021-12-15] MEDS: Atorvastatin Calcium 10 MG TAB PO SCH (21:11)
[2021-12-16] MEDS: Acetaminophen 325 MG TAB PO PRN ×2 (01:37→09:46)
[2021-12-16 05:28] LABS: Anion Gap 13 mmol/L (10-20); BUN (Urea Nitrogen) 65 mg/dL (9.8-20.1); Calc. Creatinine Clearance 26 mL/min (70-130); Calcium 8.6 mg/dL (7.8-10.44); Carbon Dioxide 22 mmol/L (23-31); Chloride 112 mmol/L (98-107); Estimated GFR 20; Glucose 182 mg/dL (83-110); Potassium 4.7 mmol/L (3.5-5.1); Sodium 142 mmol/L (136-145)
[2021-12-16] MEDS: Levothyroxine Sodium 75 MCG TAB PO SCH (05:49)
[2021-12-16] MEDS ORDERED: Amlodipine 10 MG TAB PO SCH (09:00)
[2021-12-16] MEDS: Saccharomyces boulardii 250 MG CAP PO SCH (09:46)
[2021-12-16] MEDS: Escitalopram Oxalate 20 mg Tablet PO SCH (09:46)
[2021-12-16] MEDS: Gabapentin 300 MG CAP PO SCH (09:47)
[2021-12-16] MEDS: Famotidine 20 MG TAB PO SCH (09:47)
[2021-12-16] MEDS: busPIRone HCl 5 MG TAB PO SCH (09:47)
[2021-12-16] MEDS: Carvedilol 12.5 MG TAB PO SCH ×2 (09:48→17:32)
[2021-12-16] MEDS: Heparin 5,000 UNITS/ML VIAL SC SCH (09:54)
[2021-12-16] MEDS: Lantus 1000 UNITS/10 ML VIAL SC SCH (09:58)
[2021-12-16] MEDS: hydrALAZINE 25 MG TAB PO SCH (09:59)
[2021-12-16] MEDS: Furosemide 40 MG TAB PO SCH (12:39)
[2021-12-16] MEDS ORDERED: cloNIDine 0.1 MG TAB PO SCH (15:00)
[2021-12-16] MEDS ORDERED: hydrALAZINE 25 MG TAB PO SCH (15:00)
[2021-12-16 16:55] VITALS: TEMP 97.4
[2021-12-16] MEDS: Ciprofloxacin 500 MG TAB PO SCH (17:33)
[2021-12-16 17:34] VITALS: BP 134/56
[2021-12-17] MEDS ORDERED: cloNIDine 0.1 MG TAB PO SCH (09:00)
== END 2021-12-16 20:00 | disposition home or self-care (01) | DRG 291 ==
LOC: CSHERS 18:44 → CSHTELE 22:28
PROVIDERS: ADMIT Internal Medicine; ATTEND Internal Medicine
DX: I13.0 Hypertensive heart and chronic kidney disease with heart failure and stage 1 through stage 4 chronic kidney disease, or unspecified chronic kidney disease (principal); I50.33 Acute on chronic diastolic (congestive) heart failure; J96.01 Acute respiratory failure with hypoxia; N18.4 Chronic kidney disease, stage 4 (severe); E87.2 Acidosis; N17.9 Acute kidney failure, unspecified; I16.9 Hypertensive crisis, unspecified; N39.0 Urinary tract infection, site not specified; E11.22 Type 2 diabetes mellitus with diabetic chronic kidney disease; I34.0 Nonrheumatic mitral (valve) insufficiency; D63.1 Anemia in chronic kidney disease; F41.9 Anxiety disorder, unspecified; F32.A Depression, unspecified; E03.9 Hypothyroidism, unspecified; I16.0 Hypertensive urgency; Z96.651 Presence of right artificial knee joint; I49.5 Sick sinus syndrome; D69.6 Thrombocytopenia, unspecified; G89.4 Chronic pain syndrome; B96.89 Other specified bacterial agents as the cause of diseases classified elsewhere; Z20.822 Contact with and (suspected) exposure to COVID-19; Z95.810 Presence of automatic (implantable) cardiac defibrillator; Z88.0 Allergy status to penicillin; Z88.2 Allergy status to sulfonamides; Z91.14 Patient's other noncompliance with medication regimen; Z88.5 Allergy status to narcotic agent; Z90.710 Acquired absence of both cervix and uterus; Z98.890 Other specified postprocedural states; Z88.8 Allergy status to other drugs, medicaments and biological substances; Z79.4 Long term (current) use of insulin; Z79.899 Other long term (current) drug therapy
CPT/HCPCS: 36415; 36416; 70450; 71045; 80048; 80053; 80061; 81001; 82553; 83690; 83735; 83880; 84484; 85025; 87077; 87086; 87186; 93005; 93010; 94760; 96374; 96375; J0360; J1644; J1650; J1815; J1940; J2270; U0003; U0005

== ENCOUNTER 2021-12-23 16:40 | Inpatient (IN) | payer MEDICARE, BC ==
[2021-12-23] MEDS ORDERED: Furosemide 40 MG/4 ML VIAL ONE (17:45)
[2021-12-23 18:01] LABS: #Neutrophils 7.9 10x3/uL (1.5-8.4); %Basophils 0.4 % (0.0-2.0); %Eosinophils 0.3 % (0.0-6.0); %Monocytes 10.2 % (0.0-10.0); %Neutrophils 78.5 % (40.0-75.0); Hemoglobin 9.4 g/dL (12.0-15.5); Mean Corpuscular HGB CONC 31.1 g/dL (32.0-36.0); Mean Corpuscular Hemoglobin 29.3 pg (27.0-33.0); Mean Corpuscular Volume 94.1 fl (81.6-98.3); Mean Platelet Volume 12.3 fl (7.4-10.4); Platelet Count 108 10x3/uL (150-450); RBC Distribution Width 14.1 % (11.5-14.5); Red Blood Cell (RBC) Count 3.21 10x6/uL (3.90-5.03)
[2021-12-23 18:05] LABS: ALT (SGPT) 22 U/L (8-55); AST (SGOT) 22 U/L (5-34); Albumin 3.5 g/dL (3.4-4.8); Alkaline Phosphatase 107 U/L (40-110); Anion Gap 16 mmol/L (10-20); BUN (Urea Nitrogen) 84 mg/dL (9.8-20.1); Bilirubin, Total 0.9 mg/dL (0.2-1.2); Calc. Creatinine Clearance 0 mL/min (70-130); Calcium 8.6 mg/dL (7.8-10.44); Carbon Dioxide 17 mmol/L (23-31); Chloride 108 mmol/L (98-107); Estimated GFR 18; Globulin 3.3 g/dL (2.4-3.5); Glucose 151 mg/dL (83-110); Potassium 4.1 mmol/L (3.5-5.1); Protein, Total 6.8 g/dL (5.8-8.1); Sodium 137 mmol/L (136-145)
[2021-12-23 18:30] LABS: CKMB 0.9 ng/mL (0-6.6)
[2021-12-23 20:18] LABS: Troponin I 0.033 ng/mL (< 0.028)
[2021-12-23] MEDS ORDERED: Senokot S 8.6-50 MG TAB PO PRN (20:19)
[2021-12-23] MEDS ORDERED: Guaifenesin DM 100-10/5 ML UDCUP PO PRN (20:19)
[2021-12-23] MEDS ORDERED: Ondansetron PF 4 MG/2 ML Vial IVP PRN (20:19)
[2021-12-23] MEDS ORDERED: Dextrose 50% Abboject 50 ML SYRINGE SLOW IVP PRN (20:19)
[2021-12-23] MEDS ORDERED: Dextrose 5% in Water 1,000 ML IV PRN (20:19)
[2021-12-23] MEDS ORDERED: Calcium Carbonate 500 MG ChewTAB PO PRN (20:19)
[2021-12-23] MEDS ORDERED: Nitroglycerin 2% Ointment 1 INCH/1 GM Packet TOP SCH (20:30)
[2021-12-23] MEDS: Isosorbide Dinitrate 20 MG TAB PO SCH (21:00)
[2021-12-23] MEDS ORDERED: Nitroglycerin 2% Ointment 1 INCH/1 GM Packet ONE (21:10)
[2021-12-23 23:53] LABS: Troponin I 0.027 ng/mL (< 0.028)
[2021-12-24] MEDS: Sodium Bicarbonate Tab 325 MG TAB PO SCH ×3 (00:06→22:10)
[2021-12-24] MEDS: Gabapentin 300 MG CAP PO SCH ×3 (00:06→22:10)
[2021-12-24] MEDS: hydrALAZINE 25 MG TAB PO SCH ×4 (00:06→22:10)
[2021-12-24 05:41] LABS: SARS-CoV-2 NAA Rapid Test Not Detected (NotDetected)
[2021-12-24 06:26] LABS: #Eosinphils 0.1 10x3/uL (0.0-0.5); #Monocytes 0.9 10x3/uL (0.0-1.1); #Neutrophils 8.1 10x3/uL (1.5-8.4); %Basophils 0.3 % (0.0-2.0); %Eosinophils 0.5 % (0.0-6.0); %Lymphocytes 9.6 % (18.0-47.0); Hemoglobin 8.7 g/dL (12.0-15.5); Mean Corpuscular HGB CONC 31.9 g/dL (32.0-36.0); Mean Corpuscular Hemoglobin 29.1 pg (27.0-33.0); Mean Corpuscular Volume 91.3 fl (81.6-98.3); Mean Platelet Volume 12.5 fl (7.4-10.4); Platelet Count 133 10x3/uL (150-450); RBC Distribution Width 14.1 % (11.5-14.5); Red Blood Cell (RBC) Count 2.99 10x6/uL (3.90-5.03); White Blood Cell (WBC) Count 10.2 10x3/uL (3.5-10.5)
[2021-12-24 06:31] LABS: Anion Gap 16 mmol/L (10-20); BUN (Urea Nitrogen) 85 mg/dL (9.8-20.1); Calc. Creatinine Clearance 53 mL/min (70-130); Calcium 8.6 mg/dL (7.8-10.44); Carbon Dioxide 19 mmol/L (23-31); Chloride 108 mmol/L (98-107); Estimated GFR 17; Glucose 130 mg/dL (83-110); Potassium 3.9 mmol/L (3.5-5.1); Sodium 139 mmol/L (136-145)
[2021-12-24] MEDS: Furosemide 40 MG/4 ML VIAL SLOW IVP SCH ×2 (06:39→16:38)
[2021-12-24] MEDS: Levothyroxine Sodium 75 MCG TAB PO SCH (06:39)
[2021-12-24 06:49] LABS: CKMB 0.8 ng/mL (0-6.6)
[2021-12-24] MEDS ORDERED: Nitroglycerin 0.4 MG TAB (25 Tab Bottle) ONE (07:01)
[2021-12-24 07:59] LABS: Anion Gap 17 mmol/L (10-20); BUN (Urea Nitrogen) 87 mg/dL (9.8-20.1); Calc. Creatinine Clearance 53 mL/min (70-130); Calcium 8.1 mg/dL (7.8-10.44); Carbon Dioxide 18 mmol/L (23-31); Chloride 107 mmol/L (98-107); Estimated GFR 17; Glucose 177 mg/dL (83-110); Sodium 138 mmol/L (136-145)
[2021-12-24] MEDS ORDERED: Nitroglycerin 0.4 MG TAB (25 Tab Bottle) SL PRN (08:35)
[2021-12-24] MEDS: Cholecalciferol 1,000 UNITS (25 MCG) TAB PO SCH (11:25)
[2021-12-24] MEDS: Heparin 5,000 UNITS/ML VIAL SC SCH ×4 (11:25→22:17)
[2021-12-24] MEDS: busPIRone HCl 5 MG TAB PO SCH (11:25)
[2021-12-24] MEDS: Escitalopram Oxalate 20 mg Tablet PO SCH (11:26)
[2021-12-24] MEDS: Atorvastatin Calcium 10 MG TAB PO SCH (11:26)
[2021-12-24] MEDS: Carvedilol 12.5 MG TAB PO SCH (11:27)
[2021-12-24] MEDS: Isosorbide Dinitrate 20 MG TAB PO SCH ×2 (11:27→22:55)
[2021-12-24] MEDS: Ferrous Sulfate 325 MG TAB PO SCH ×2 (11:27→16:38)
[2021-12-24] MEDS: Lantus 1000 UNITS/10 ML VIAL SC SCH (11:28)
[2021-12-24] MEDS: Acetaminophen 325 MG TAB PO PRN ×2 (11:43→22:16)
[2021-12-24] MEDS: EPOETIN ALFA-EPBX (ESRD) 4,000 UNIT/ML VIAL SC SCH (11:44)
[2021-12-24] MEDS: HumaLOG 300 UNITS/3 ML VIAL SC PRN (16:45)
[2021-12-25 01:40] LABS: Bilirubin Neg (Negative); Blood, Urine Negative (Negative); Clarity Clear (Clear); Glucose, Urine (Dipstick) Normal (Negative); Ketone, Urine Negative (Negative); Leukocyte Negative (Negative); Nitrite Negative (Negative); Protein, Urine (Dipstick) 30 mg/dl (Neg-Trace); Specific Gravity, Urine 1.015 (1.005-1.030); Urobilinogen Normal mg/dL (Less than 2)
[2021-12-25 01:49] LABS: RBC/HPF None Seen HPF (0-3); Squamous Epithelial 0-3 HPF (0-3); Urine Culture Reflex No No; WBC/HPF 0-3 HPF (0-3)
[2021-12-25 01:51] LABS: Bacteria/HPF Rare-Few HPF (None Seen)
[2021-12-25 04:59] LABS: #Eosinphils 0.2 10x3/uL (0.0-0.5); #Monocytes 0.7 10x3/uL (0.0-1.1); #Neutrophils 6.2 10x3/uL (1.5-8.4); %Basophils 0.2 % (0.0-2.0); %Lymphocytes 11.4 % (18.0-47.0); %Monocytes 8.7 % (0.0-10.0); %Neutrophils 77.2 % (40.0-75.0); Mean Corpuscular Hemoglobin 29.5 pg (27.0-33.0); Mean Corpuscular Volume 92.3 fl (81.6-98.3); Mean Platelet Volume 12.6 fl (7.4-10.4); Platelet Count 144 10x3/uL (150-450); RBC Distribution Width 13.8 % (11.5-14.5); Red Blood Cell (RBC) Count 2.71 10x6/uL (3.90-5.03); White Blood Cell (WBC) Count 8.1 10x3/uL (3.5-10.5)
[2021-12-25 05:05] LABS: Anion Gap 16 mmol/L (10-20); BUN (Urea Nitrogen) 88 mg/dL (9.8-20.1); Calc. Creatinine Clearance 22 mL/min (70-130); Calcium 8.5 mg/dL (7.8-10.44); Carbon Dioxide 21 mmol/L (23-31); Chloride 106 mmol/L (98-107); Estimated GFR 16; Glucose 128 mg/dL (83-110); Potassium 3.7 mmol/L (3.5-5.1); Sodium 139 mmol/L (136-145)
[2021-12-25] MEDS: Furosemide 40 MG/4 ML VIAL SLOW IVP SCH ×2 (05:23→14:18)
[2021-12-25] MEDS: Levothyroxine Sodium 75 MCG TAB PO SCH (05:23)
[2021-12-25] MEDS: Acetaminophen 325 MG TAB PO PRN ×2 (05:31→21:25)
[2021-12-25] MEDS: Atorvastatin Calcium 10 MG TAB PO SCH (08:45)
[2021-12-25] MEDS: Carvedilol 12.5 MG TAB PO SCH (08:47)
[2021-12-25] MEDS: busPIRone HCl 5 MG TAB PO SCH (08:47)
[2021-12-25] MEDS: Isosorbide Dinitrate 20 MG TAB PO SCH ×2 (08:47→21:34)
[2021-12-25] MEDS: Escitalopram Oxalate 20 mg Tablet PO SCH (08:47)
[2021-12-25] MEDS: Sodium Bicarbonate Tab 325 MG TAB PO SCH ×2 (08:47→21:26)
[2021-12-25] MEDS: Ferrous Sulfate 325 MG TAB PO SCH ×2 (08:48→16:52)
[2021-12-25] MEDS: hydrALAZINE 25 MG TAB PO SCH ×3 (08:48→21:26)
[2021-12-25] MEDS: Gabapentin 300 MG CAP PO SCH ×2 (08:48→21:26)
[2021-12-25] MEDS: Lantus 1000 UNITS/10 ML VIAL SC SCH (08:49)
[2021-12-25] MEDS: Heparin 5,000 UNITS/ML VIAL SC SCH ×3 (08:49→21:29)
[2021-12-25] MEDS: HumaLOG 300 UNITS/3 ML VIAL SC PRN (18:49)
[2021-12-26 05:12] LABS: #Eosinphils 0.3 10x3/uL (0.0-0.5); #Monocytes 0.7 10x3/uL (0.0-1.1); #Neutrophils 5.8 10x3/uL (1.5-8.4); %Basophils 0.4 % (0.0-2.0); %Eosinophils 3.5 % (0.0-6.0); %Lymphocytes 12.3 % (18.0-47.0); %Monocytes 8.6 % (0.0-10.0); Hemoglobin 7.9 g/dL (12.0-15.5); Mean Corpuscular HGB CONC 32.4 g/dL (32.0-36.0); Mean Corpuscular Hemoglobin 29.7 pg (27.0-33.0); Mean Corpuscular Volume 91.7 fl (81.6-98.3); Mean Platelet Volume 12.2 fl (7.4-10.4); Platelet Count 160 10x3/uL (150-450); RBC Distribution Width 13.8 % (11.5-14.5); Red Blood Cell (RBC) Count 2.66 10x6/uL (3.90-5.03); White Blood Cell (WBC) Count 7.8 10x3/uL (3.5-10.5)
[2021-12-26 05:37] LABS: Anion Gap 15 mmol/L (10-20); BUN (Urea Nitrogen) 91 mg/dL (9.8-20.1); Calc. Creatinine Clearance 23 mL/min (70-130); Calcium 8.5 mg/dL (7.8-10.44); Carbon Dioxide 22 mmol/L (23-31); Chloride 106 mmol/L (98-107); Estimated GFR 17; Glucose 112 mg/dL (83-110); Potassium 3.6 mmol/L (3.5-5.1); Sodium 139 mmol/L (136-145)
[2021-12-26] MEDS: Levothyroxine Sodium 75 MCG TAB PO SCH (06:36)
[2021-12-26] MEDS: Furosemide 40 MG/4 ML VIAL SLOW IVP SCH ×2 (06:36→09:52)
[2021-12-26] MEDS: Cholecalciferol 1,000 UNITS (25 MCG) TAB PO SCH (09:48)
[2021-12-26] MEDS: hydrALAZINE 25 MG TAB PO SCH ×3 (09:48→21:55)
[2021-12-26] MEDS: Atorvastatin Calcium 10 MG TAB PO SCH (09:49)
[2021-12-26] MEDS: Gabapentin 300 MG CAP PO SCH ×2 (09:49→22:00)
[2021-12-26] MEDS: Carvedilol 12.5 MG TAB PO SCH (09:49)
[2021-12-26] MEDS: Escitalopram Oxalate 20 mg Tablet PO SCH (09:49)
[2021-12-26] MEDS: busPIRone HCl 5 MG TAB PO SCH (09:50)
[2021-12-26] MEDS: Ferrous Sulfate 325 MG TAB PO SCH ×2 (09:50→16:52)
[2021-12-26] MEDS: Isosorbide Dinitrate 20 MG TAB PO SCH ×2 (09:50→22:57)
[2021-12-26] MEDS: Lantus 1000 UNITS/10 ML VIAL SC SCH (09:50)
[2021-12-26] MEDS: Sodium Bicarbonate Tab 325 MG TAB PO SCH ×2 (09:50→21:55)
[2021-12-26] MEDS: Heparin 5,000 UNITS/ML VIAL SC SCH ×3 (09:51→22:00)
[2021-12-26] MEDS: Metoclopramide HCl 10 MG TAB PO SCH ×3 (12:30→21:55)
[2021-12-26] MEDS: HumaLOG 300 UNITS/3 ML VIAL SC PRN (13:26)
[2021-12-27 05:03] LABS: #Eosinphils 0.3 10x3/uL (0.0-0.5); #Monocytes 0.7 10x3/uL (0.0-1.1); #Neutrophils 5.2 10x3/uL (1.5-8.4); %Basophils 0.4 % (0.0-2.0); %Eosinophils 3.7 % (0.0-6.0); %Lymphocytes 14.4 % (18.0-47.0); %Monocytes 9.1 % (0.0-10.0); %Neutrophils 71.3 % (40.0-75.0); Hemoglobin 8.6 g/dL (12.0-15.5); Mean Corpuscular HGB CONC 32.2 g/dL (32.0-36.0); Mean Platelet Volume 12.3 fl (7.4-10.4); Platelet Count 157 10x3/uL (150-450); RBC Distribution Width 13.6 % (11.5-14.5); Red Blood Cell (RBC) Count 2.87 10x6/uL (3.90-5.03); White Blood Cell (WBC) Count 7.4 10x3/uL (3.5-10.5)
[2021-12-27 05:08] LABS: Anion Gap 15 mmol/L (10-20); BUN (Urea Nitrogen) 88 mg/dL (9.8-20.1); Calc. Creatinine Clearance 24 mL/min (70-130); Calcium 8.6 mg/dL (7.8-10.44); Carbon Dioxide 23 mmol/L (23-31); Chloride 107 mmol/L (98-107); Estimated GFR 18; Glucose 158 mg/dL (83-110); Potassium 3.7 mmol/L (3.5-5.1); Sodium 141 mmol/L (136-145)
[2021-12-27] MEDS: Levothyroxine Sodium 75 MCG TAB PO SCH (06:24)
[2021-12-27] MEDS: hydrALAZINE 25 MG TAB PO SCH ×3 (08:26→20:25)
[2021-12-27] MEDS: Cholecalciferol 1,000 UNITS (25 MCG) TAB PO SCH (08:26)
[2021-12-27] MEDS: Amlodipine 10 MG TAB PO SCH (08:27)
[2021-12-27] MEDS: Metoclopramide HCl 10 MG TAB PO SCH ×4 (08:27→22:51)
[2021-12-27] MEDS: Atorvastatin Calcium 10 MG TAB PO SCH (08:27)
[2021-12-27] MEDS: Gabapentin 300 MG CAP PO SCH ×2 (08:27→20:27)
[2021-12-27] MEDS: Sodium Bicarbonate Tab 325 MG TAB PO SCH ×2 (08:27→20:25)
[2021-12-27] MEDS: busPIRone HCl 5 MG TAB PO SCH (08:27)
[2021-12-27] MEDS: Isosorbide Dinitrate 20 MG TAB PO SCH ×2 (08:28→20:26)
[2021-12-27] MEDS: Lantus 1000 UNITS/10 ML VIAL SC SCH (08:28)
[2021-12-27] MEDS: Escitalopram Oxalate 20 mg Tablet PO SCH (08:28)
[2021-12-27] MEDS: Carvedilol 12.5 MG TAB PO SCH (08:28)
[2021-12-27] MEDS: Ferrous Sulfate 325 MG TAB PO SCH ×2 (08:29→16:15)
[2021-12-27] MEDS: Heparin 5,000 UNITS/ML VIAL SC SCH ×3 (08:29→20:28)
[2021-12-27] MEDS: Furosemide 40 MG/4 ML VIAL SLOW IVP SCH (08:29)
[2021-12-27] MEDS: HumaLOG 300 UNITS/3 ML VIAL SC PRN (11:39)
[2021-12-28 05:10] LABS: Anion Gap 15 mmol/L (10-20); BUN (Urea Nitrogen) 97 mg/dL (9.8-20.1); Calc. Creatinine Clearance 22 mL/min (70-130); Calcium 8.8 mg/dL (7.8-10.44); Carbon Dioxide 24 mmol/L (23-31); Chloride 106 mmol/L (98-107); Estimated GFR 16; Glucose 111 mg/dL (83-110); Sodium 141 mmol/L (136-145)
[2021-12-28 05:14] LABS: #Eosinphils 0.3 10x3/uL (0.0-0.5); #Monocytes 0.7 10x3/uL (0.0-1.1); #Neutrophils 4.7 10x3/uL (1.5-8.4); %Basophils 0.6 % (0.0-2.0); %Eosinophils 3.6 % (0.0-6.0); %Monocytes 10.4 % (0.0-10.0); %Neutrophils 67.2 % (40.0-75.0); Hemoglobin 7.8 g/dL (12.0-15.5); Mean Corpuscular HGB CONC 31.8 g/dL (32.0-36.0); Mean Corpuscular Hemoglobin 29.2 pg (27.0-33.0); Mean Corpuscular Volume 91.8 fl (81.6-98.3); Mean Platelet Volume 11.6 fl (7.4-10.4); Platelet Count 181 10x3/uL (150-450); RBC Distribution Width 13.8 % (11.5-14.5); Red Blood Cell (RBC) Count 2.67 10x6/uL (3.90-5.03); White Blood Cell (WBC) Count 6.9 10x3/uL (3.5-10.5)
[2021-12-28] MEDS: Levothyroxine Sodium 75 MCG TAB PO SCH (06:15)
[2021-12-28] MEDS: Lantus 1000 UNITS/10 ML VIAL SC SCH (08:16)
[2021-12-28] MEDS: Furosemide 40 MG/4 ML VIAL SLOW IVP SCH (08:16)
[2021-12-28] MEDS: Isosorbide Dinitrate 20 MG TAB PO SCH ×2 (08:16→20:28)
[2021-12-28] MEDS: Ferrous Sulfate 325 MG TAB PO SCH ×2 (08:16→17:49)
[2021-12-28] MEDS: Amlodipine 10 MG TAB PO SCH (08:16)
[2021-12-28] MEDS: Atorvastatin Calcium 10 MG TAB PO SCH (08:16)
[2021-12-28] MEDS: Heparin 5,000 UNITS/ML VIAL SC SCH ×3 (08:16→20:34)
[2021-12-28] MEDS: Metoclopramide HCl 10 MG TAB PO SCH ×4 (08:17→20:26)
[2021-12-28] MEDS: Gabapentin 300 MG CAP PO SCH ×2 (08:17→20:27)
[2021-12-28] MEDS: Escitalopram Oxalate 20 mg Tablet PO SCH (08:17)
[2021-12-28] MEDS: Carvedilol 12.5 MG TAB PO SCH (08:17)
[2021-12-28] MEDS: hydrALAZINE 25 MG TAB PO SCH ×3 (08:17→20:26)
[2021-12-28] MEDS: Sodium Bicarbonate Tab 325 MG TAB PO SCH ×2 (08:17→20:27)
[2021-12-28] MEDS: busPIRone HCl 5 MG TAB PO SCH (08:17)
[2021-12-28] MEDS: HumaLOG 300 UNITS/3 ML VIAL SC PRN (20:34)
[2021-12-29 04:45] LABS: #Eosinphils 0.4 10x3/uL (0.0-0.5); #Monocytes 0.8 10x3/uL (0.0-1.1); #Neutrophils 5.1 10x3/uL (1.5-8.4); %Basophils 0.5 % (0.0-2.0); %Eosinophils 5.1 % (0.0-6.0); %Lymphocytes 16.9 % (18.0-47.0); %Monocytes 9.9 % (0.0-10.0); %Neutrophils 65.7 % (40.0-75.0); Hemoglobin 7.7 g/dL (12.0-15.5); Mean Corpuscular HGB CONC 31.2 g/dL (32.0-36.0); Mean Corpuscular Hemoglobin 29.2 pg (27.0-33.0); Mean Corpuscular Volume 93.6 fl (81.6-98.3); Mean Platelet Volume 11.9 fl (7.4-10.4); Platelet Count 193 10x3/uL (150-450); RBC Distribution Width 13.9 % (11.5-14.5); Red Blood Cell (RBC) Count 2.64 10x6/uL (3.90-5.03); White Blood Cell (WBC) Count 7.8 10x3/uL (3.5-10.5)
[2021-12-29 04:57] LABS: Anion Gap 15 mmol/L (10-20); BUN (Urea Nitrogen) 99 mg/dL (9.8-20.1); Calc. Creatinine Clearance 24 mL/min (70-130); Calcium 9.1 mg/dL (7.8-10.44); Carbon Dioxide 25 mmol/L (23-31); Chloride 107 mmol/L (98-107); Estimated GFR 17; Glucose 124 mg/dL (83-110); Potassium 4.1 mmol/L (3.5-5.1); Sodium 143 mmol/L (136-145)
[2021-12-29] MEDS: Levothyroxine Sodium 75 MCG TAB PO SCH (06:08)
[2021-12-29] MEDS: hydrALAZINE 25 MG TAB PO SCH ×3 (06:10→21:23)
[2021-12-29] MEDS: Heparin 5,000 UNITS/ML VIAL SC SCH ×3 (09:40→21:22)
[2021-12-29] MEDS: Lantus 1000 UNITS/10 ML VIAL SC SCH (09:40)
[2021-12-29] MEDS: Isosorbide Dinitrate 20 MG TAB PO SCH ×2 (09:41→21:24)
[2021-12-29] MEDS: Gabapentin 300 MG CAP PO SCH ×2 (09:41→21:24)
[2021-12-29] MEDS: busPIRone HCl 5 MG TAB PO SCH (09:41)
[2021-12-29] MEDS: Ferrous Sulfate 325 MG TAB PO SCH ×2 (09:41→18:11)
[2021-12-29] MEDS: Escitalopram Oxalate 20 mg Tablet PO SCH (09:41)
[2021-12-29] MEDS: Amlodipine 10 MG TAB PO SCH (09:41)
[2021-12-29] MEDS: Cholecalciferol 1,000 UNITS (25 MCG) TAB PO SCH (09:41)
[2021-12-29] MEDS: Atorvastatin Calcium 10 MG TAB PO SCH (09:41)
[2021-12-29] MEDS: Sodium Bicarbonate Tab 325 MG TAB PO SCH ×2 (09:41→21:24)
[2021-12-29] MEDS: Furosemide 40 MG/4 ML VIAL SLOW IVP SCH (09:41)
[2021-12-29] MEDS: Carvedilol 12.5 MG TAB PO SCH (09:41)
[2021-12-29] MEDS: Metoclopramide HCl 10 MG TAB PO SCH ×4 (09:42→21:23)
[2021-12-29] MEDS: HumaLOG 300 UNITS/3 ML VIAL SC PRN ×2 (12:17→15:34)
[2021-12-30 04:53] LABS: #Eosinphils 0.4 10x3/uL (0.0-0.5); #Monocytes 0.8 10x3/uL (0.0-1.1); #Neutrophils 5.4 10x3/uL (1.5-8.4); %Basophils 0.5 % (0.0-2.0); %Eosinophils 4.6 % (0.0-6.0); %Lymphocytes 16.9 % (18.0-47.0); %Monocytes 9.7 % (0.0-10.0); %Neutrophils 65.5 % (40.0-75.0); Hemoglobin 7.6 g/dL (12.0-15.5); Mean Corpuscular HGB CONC 30.9 g/dL (32.0-36.0); Mean Corpuscular Volume 93.9 fl (81.6-98.3); Mean Platelet Volume 11.5 fl (7.4-10.4); Platelet Count 194 10x3/uL (150-450); RBC Distribution Width 13.9 % (11.5-14.5); Red Blood Cell (RBC) Count 2.62 10x6/uL (3.90-5.03); White Blood Cell (WBC) Count 8.2 10x3/uL (3.5-10.5)
[2021-12-30 04:56] LABS: Anion Gap 14 mmol/L (10-20); BUN (Urea Nitrogen) 96 mg/dL (9.8-20.1); Calc. Creatinine Clearance 23 mL/min (70-130); Carbon Dioxide 25 mmol/L (23-31); Chloride 105 mmol/L (98-107); Estimated GFR 16; Glucose 129 mg/dL (83-110); Potassium 4.2 mmol/L (3.5-5.1); Sodium 140 mmol/L (136-145)
[2021-12-30] MEDS: Levothyroxine Sodium 75 MCG TAB PO SCH (06:30)
[2021-12-30] MEDS: HumaLOG 300 UNITS/3 ML VIAL SC PRN (09:53)
[2021-12-30] MEDS: Heparin 5,000 UNITS/ML VIAL SC SCH ×3 (09:54→20:06)
[2021-12-30] MEDS: Lantus 1000 UNITS/10 ML VIAL SC SCH (09:54)
[2021-12-30] MEDS: Gabapentin 300 MG CAP PO SCH ×2 (09:54→20:09)
[2021-12-30] MEDS: Furosemide 40 MG/4 ML VIAL SLOW IVP SCH (09:54)
[2021-12-30] MEDS: hydrALAZINE 25 MG TAB PO SCH ×3 (09:55→21:36)
[2021-12-30] MEDS: Cholecalciferol 1,000 UNITS (25 MCG) TAB PO SCH (09:55)
[2021-12-30] MEDS: busPIRone HCl 5 MG TAB PO SCH (09:56)
[2021-12-30] MEDS: Atorvastatin Calcium 10 MG TAB PO SCH (09:56)
[2021-12-30] MEDS: Isosorbide Dinitrate 20 MG TAB PO SCH ×2 (09:56→21:36)
[2021-12-30] MEDS: Sodium Bicarbonate Tab 325 MG TAB PO SCH ×2 (09:57→20:09)
[2021-12-30] MEDS: Ferrous Sulfate 325 MG TAB PO SCH ×2 (09:57→18:31)
[2021-12-30] MEDS: Carvedilol 12.5 MG TAB PO SCH (09:57)
[2021-12-30] MEDS: Amlodipine 10 MG TAB PO SCH (09:57)
[2021-12-30] MEDS: Escitalopram Oxalate 20 mg Tablet PO SCH (09:57)
[2021-12-30] MEDS: Metoclopramide HCl 10 MG TAB PO SCH ×4 (09:58→20:13)
[2021-12-31 05:16] LABS: Anion Gap 14 mmol/L (10-20); BUN (Urea Nitrogen) 98 mg/dL (9.8-20.1); Calc. Creatinine Clearance 24 mL/min (70-130); Carbon Dioxide 24 mmol/L (23-31); Chloride 105 mmol/L (98-107); Estimated GFR 17; Glucose 100 mg/dL (83-110); Potassium 4.3 mmol/L (3.5-5.1); Sodium 139 mmol/L (136-145)
[2021-12-31] MEDS: hydrALAZINE 25 MG TAB PO SCH (05:36)
[2021-12-31] MEDS: Levothyroxine Sodium 75 MCG TAB PO SCH (05:46)
[2021-12-31 06:10] VITALS: BMI 36.0
[2021-12-31] MEDS: Metoclopramide HCl 10 MG TAB PO SCH (08:10)
[2021-12-31] MEDS ORDERED: hydrALAZINE 25 MG TAB PO SCH (09:00)
[2021-12-31] MEDS ORDERED: Furosemide 40 MG TAB PO SCH (09:00)
[2021-12-31] MEDS: EPOETIN ALFA-EPBX (ESRD) 4,000 UNIT/ML VIAL SC SCH (10:21)
[2021-12-31] MEDS: Heparin 5,000 UNITS/ML VIAL SC SCH (10:21)
[2021-12-31] MEDS: Isosorbide Dinitrate 20 MG TAB PO SCH (10:22)
[2021-12-31] MEDS: Cholecalciferol 1,000 UNITS (25 MCG) TAB PO SCH (10:22)
[2021-12-31] MEDS: Amlodipine 10 MG TAB PO SCH (10:23)
[2021-12-31] MEDS: busPIRone HCl 5 MG TAB PO SCH (10:23)
[2021-12-31] MEDS: Atorvastatin Calcium 10 MG TAB PO SCH (10:23)
[2021-12-31] MEDS: Carvedilol 12.5 MG TAB PO SCH (10:24)
[2021-12-31] MEDS: Gabapentin 300 MG CAP PO SCH (10:24)
[2021-12-31] MEDS: Ferrous Sulfate 325 MG TAB PO SCH (10:25)
[2021-12-31] MEDS: Sodium Bicarbonate Tab 325 MG TAB PO SCH (10:25)
[2021-12-31] MEDS: Escitalopram Oxalate 20 mg Tablet PO SCH (10:31)
[2021-12-31] MEDS: Lantus 1000 UNITS/10 ML VIAL SC SCH (10:33)
[2021-12-31] MEDS ORDERED: Docusate 100 MG CAP PO SCH (12:30)
[2021-12-31] MEDS ORDERED: Polyethylene Glycol 3350 17 GM Packet PO SCH (13:00)
[2021-12-31 22:50] VITALS: BP 148/65; TEMP 97.8
== END 2021-12-31 13:15 | DRG 280 ==
LOC: CSHERS 16:40 → CSHTELE 23:09
PROVIDERS: ADMIT Student in an Organized Health Care Education/Training Program; ATTEND Internal Medicine
DX: I13.0 Hypertensive heart and chronic kidney disease with heart failure and stage 1 through stage 4 chronic kidney disease, or unspecified chronic kidney disease (principal); I21.A1 Myocardial infarction type 2; I50.33 Acute on chronic diastolic (congestive) heart failure; J96.01 Acute respiratory failure with hypoxia; N18.4 Chronic kidney disease, stage 4 (severe); N17.9 Acute kidney failure, unspecified; E87.20 Acidosis, unspecified; D63.1 Anemia in chronic kidney disease; F41.9 Anxiety disorder, unspecified; F32.A Depression, unspecified; E03.9 Hypothyroidism, unspecified; R53.1 Weakness; E11.22 Type 2 diabetes mellitus with diabetic chronic kidney disease; R53.81 Other malaise; G47.33 Obstructive sleep apnea (adult) (pediatric); D69.6 Thrombocytopenia, unspecified; E78.00 Pure hypercholesterolemia, unspecified; Z96.651 Presence of right artificial knee joint; I70.1 Atherosclerosis of renal artery; I49.5 Sick sinus syndrome; E78.2 Mixed hyperlipidemia; Z20.822 Contact with and (suspected) exposure to COVID-19; Z79.899 Other long term (current) drug therapy; Z88.0 Allergy status to penicillin; Z95.0 Presence of cardiac pacemaker; Z88.8 Allergy status to other drugs, medicaments and biological substances; Z88.2 Allergy status to sulfonamides; Z90.710 Acquired absence of both cervix and uterus; Z91.14 Patient's other noncompliance with medication regimen; Z82.49 Family history of ischemic heart disease and other diseases of the circulatory system; Z91.018 Allergy to other foods; Z79.4 Long term (current) use of insulin; Z79.890 Hormone replacement therapy; Z98.890 Other specified postprocedural states
CPT/HCPCS: 36415; 36416; 71045; 80048; 80053; 81001; 82553; 83880; 84145; 84443; 84484; 85025; 93005; 93010; 93306; 94640; 94760; 96374; J1644; J1815; J1940; J7620; Q5105; U0002